=== PATIENT | female | born 1985 | race Caucasian/White ===

== ENCOUNTER → 2017-04-30 | Outpatient (CLI) | payer MEDICAID ==
[~2017-04-30] MED LIST: LORTAB 5/500 501 TAB PO; PERCOCET 5/3251 EACH PO; Tramadol HCl50 MG PO
[2017-04-30 16:09] LABS: LYMPH # 3.3 K/mm3 (0.7-4.5)
[2017-04-30 16:20] LABS: URINE BILIRUBIN - DIPSTICK NEGATIVE (NEG); URINE BLOOD NEGATIVE (NEG)
[2017-04-30 16:37] LABS: URINE SQUAMOUS CELLS 20-50 #/hpf (0-5)
[2017-04-30 17:08] LABS: BUN 9 mg/dL (7-18)
[2017-04-30 17:23] LABS: GFR (ESTIMATED) 98 ML/MIN (59-)
== END ==
LOC: LAB 15:31
PROVIDERS: Nurse Practitioner Family
DX: I10 Essential (primary) hypertension (principal); Z68.41 Body mass index [BMI] 40.0-44.9, adult